=== PATIENT | male | born 1965 | race Hispanic/Latino ===

== ENCOUNTER 2023-03-12 23:53 | Inpatient (IN) | payer OTHER ==
[~2023-03-12] VITALS: Ht 170.2 cm; Wt 96.2 kg
[2023-03-13 00:56] LABS: BASOPHILS % (AUTO) 0.6 % (0.0-5.0); EOSINOPHILS % (AUTO) 3.3 % (0.0-8.0); HEMATOCRIT 42.4 % (42-54); MEAN CORPUSCULAR HEMOGLOBIN 30.1 pg (27.0-33.0); MEAN CORPUSCULAR VOLUME 88.5 fL (79-99); MONOCYTES % (AUTO) 8.2 % (3.0-13.0); NEUTROPHILS % (AUTO) 62.8 % (40.0-77.0); PLATELET COUNT (AUTO) 234 K/uL (130-400); RED BLOOD CELL COUNT(AUTO) 4.79 MIL/uL (4.50-6.20); RED CELL DISTRIBUTION WIDTH 13.1 % (11.0-15.5)
[2023-03-13 01:01] LABS: APPEARANCE,URINE CLEAR (CLEAR); BILIRUBIN,URINE NEGATIVE (NEGATIVE); COLOR,URINE YELLOW (YELLOW); GLUCOSE, URINE (UA) NEGATIVE (NEGATIVE); KETONES,URINE 10 mg/dL (NEGATIVE); LEUKOCYTE ESTERASE ,URINE NEGATIVE Leu/uL (NEGATIVE); NITRATE,URINE NEGATIVE (NEGATIVE); OCCULT BLOOD,URINE NEGATIVE (NEGATIVE); PROTEIN,URINE 10 mg/dL (NEGATIVE); UROBILINOGEN,URINE 0.2 mg/dL (0.2-1.0)
[2023-03-13 01:05] LABS: MUCUS,URINE RARE LPF (None Seen); WBC,URINE 0-1 /HPF (0-1)
[2023-03-13 01:08] LABS: POTASSIUM 3.9 mmol/L (3.5-5.1)
[2023-03-13 01:14] LABS: ALBUMIN 3.9 g/dL (3.5-5.0); TOTAL PROTEIN, SERUM 7.4 g/dL (6.0-8.3)
[2023-03-13] MEDS ORDERED: MORPHINE 4 MG SYG IVP ONE (01:30)
[2023-03-13] MEDS ORDERED: ONDANSETRON 4MG INJ IVP ONE (01:30)
[2023-03-13] MEDS ORDERED: IOHEXOL-350 75 ML VIAL IV ONE (02:42)
[2023-03-13] MEDS ORDERED: HYDROMORPHONE 0.5 MG SYG (0.5MG/0.5ML) IVP ONE (04:00)
[2023-03-13] MEDS ORDERED: VANCOMYCIN 1G/250ML KIT 250 ML IV ONE (06:52)
[2023-03-13] MEDS ORDERED: VANCOMYCIN 1G VIAL IVPB ONE (07:00)
[2023-03-13] MEDS ORDERED: HYDROMORPHONE 0.5 MG SYG (0.5MG/0.5ML) IVP PRN (07:00)
[2023-03-13] MEDS: ZOSYN 3.375GM +NS 50ML IVPB SCH ×3 (07:00→22:36)
[2023-03-13] MEDS ORDERED: ZOSYN 3.375GM +NS 50ML IVPB ONE (07:00)
[2023-03-13] MEDS ORDERED: FURO20TA4 PO (08:14)
[2023-03-13] MEDS ORDERED: RANO500T6 PO (08:16)
[2023-03-13] MEDS ORDERED: CLOP75TA32 PO (08:17)
[2023-03-13] MEDS ORDERED: ASPI-1197 PO (08:18)
[2023-03-13] MEDS ORDERED: ATOR40TA69 PO (08:21)
[2023-03-13] MEDS ORDERED: METO-408 PO (08:21)
[2023-03-13] MEDS ORDERED: 0.9%NACL 50ML IV SCH (09:00)
[2023-03-13] MEDS ORDERED: HEPARIN 5,000 UNIT VIAL SQ SCH (10:00)
[2023-03-13 10:10] VITALS: BP 122/76
[2023-03-13] MEDS: FAMOTIDINE 20MG TAB PO SCH (11:25)
[2023-03-13] MEDS ORDERED: ASPIRIN 325MG TAB PO SCH (11:30)
[2023-03-13] MEDS ORDERED: METOPROLOL SUCCINATE 25 MG TAB.SR.24H PO SCH (11:30)
[2023-03-13] MEDS ORDERED: RANOLAZINE 500 MG TAB.SR.12H PO SCH (11:30)
[2023-03-13] MEDS ORDERED: LACTULOSE 20 GM/30 ML UDCUP PO ONE ×2 (13:00→15:00)
[2023-03-13 16:00] VITALS: BP 131/83
[2023-03-13] MEDS ORDERED: PEG 3350/NA SULF,BICARB,CL/KCL 4000 ML SOLN PO ONE (16:00)
[2023-03-13 20:13] VITALS: BP 134/81
[2023-03-13] MEDS: RANOLAZINE 500 MG TAB.SR.12H PO SCH (20:17)
[2023-03-13] MEDS: ATORVASTATIN 40 MG TABLET PO SCH (20:17)
[2023-03-14] VITALS (30 sets, daily range): BP systolic 99–148; BP diastolic 61–87
[2023-03-14 04:54] LABS: BASOPHILS % (AUTO) 0.5 % (0.0-5.0); EOSINOPHILS % (AUTO) 5.1 % (0.0-8.0); HEMATOCRIT 41.2 % (42-54); LYMPHOCYTES % (AUTO) 26.2 % (21.0-51.0); MEAN CORPUSCULAR HEMOGLOBIN 29.6 pg (27.0-33.0); MEAN CORPUSCULAR HGB CONC 32.8 g/dL (32.0-36.0); MEAN CORPUSCULAR VOLUME 90.4 fL (79-99); PLATELET COUNT (AUTO) 223 K/uL (130-400); RED BLOOD CELL COUNT(AUTO) 4.56 MIL/uL (4.50-6.20); RED CELL DISTRIBUTION WIDTH 13.2 % (11.0-15.5); WHITE BLOOD COUNT (AUTO) 6.1 K/uL (4.8-10.8)
[2023-03-14 05:32] LABS: ALBUMIN 3.3 g/dL (3.5-5.0); CREATININE 1.1 mg/dL (0.5-1.5); TOTAL PROTEIN, SERUM 6.5 g/dL (6.0-8.3)
[2023-03-14] MEDS: ZOSYN 3.375GM +NS 50ML IVPB SCH ×3 (07:17→22:36)
[2023-03-14] MEDS: FUROSEMIDE 20 MG TABLET PO SCH (09:00)
[2023-03-14] MEDS ORDERED: ASPIRIN 81MG CHEW TAB PO SCH (09:00)
[2023-03-14] MEDS: RANOLAZINE 500 MG TAB.SR.12H PO SCH ×2 (09:00→19:48)
[2023-03-14] MEDS: FAMOTIDINE 20MG TAB PO SCH (09:00)
[2023-03-14] MEDS ORDERED: PROPOFOL 10 MG/ML 20ML VIAL IV ONE ×2 (13:37)
[2023-03-14] MEDS: METOPROLOL SUCCINATE 25 MG TAB.SR.24H PO SCH (15:20)
[2023-03-14] MEDS: ATORVASTATIN 40 MG TABLET PO SCH (19:48)
[2023-03-15] VITALS: BP 102/61
[2023-03-15 04:00] VITALS: BP 114/67
[2023-03-15] MEDS: ZOSYN 3.375GM +NS 50ML IVPB SCH (06:40)
[2023-03-15 07:52] VITALS: BP 115/69
[2023-03-15] MEDS: FUROSEMIDE 20 MG TABLET PO SCH (08:54)
[2023-03-15] MEDS: FAMOTIDINE 20MG TAB PO SCH (08:54)
[2023-03-15] MEDS: RANOLAZINE 500 MG TAB.SR.12H PO SCH (08:55)
[2023-03-15] MEDS: METOPROLOL SUCCINATE 25 MG TAB.SR.24H PO SCH (08:55)
[2023-03-15 11:35] VITALS: BP 123/78
== END 2023-03-15 13:16 | disposition home or self-care (01) | DRG 394 ==
LOC: EDH 23:53 → EDHIP 03-13 06:52 → 4AH 03-13 10:09
PROVIDERS: ADMIT Hospitalist; ATTEND Hospitalist
PROC: 0DBP8ZZ Excision of Rectum, Via Natural or Artificial Opening Endoscopic (ICD-10-PCS; principal; 2023-03-14)
DX: K62.1 Rectal polyp (principal); K63.3 Ulcer of intestine; K59.00 Constipation, unspecified; I25.10 Atherosclerotic heart disease of native coronary artery without angina pectoris; E78.00 Pure hypercholesterolemia, unspecified; Z20.822 Contact with and (suspected) exposure to COVID-19; I10 Essential (primary) hypertension; W18.39XA Other fall on same level, initial encounter; K64.8 Other hemorrhoids; Z79.82 Long term (current) use of aspirin; Z79.02 Long term (current) use of antithrombotics/antiplatelets; Z95.1 Presence of aortocoronary bypass graft; I25.2 Old myocardial infarction; Y93.89 Activity, other specified; Y92.89 Other specified places as the place of occurrence of the external cause; Y99.8 Other external cause status; Z79.899 Other long term (current) drug therapy; Z82.3 Family history of stroke; Z82.49 Family history of ischemic heart disease and other diseases of the circulatory system; Z83.3 Family history of diabetes mellitus
CPT/HCPCS: 36415; 45380; 74177; 80053; 81001; 83605; 83735; 84153; 85025; 87635; A4606; G0378; J1170; J1644; J2270; J2405; J2543; J2704; J3370; J7030; Q9967

== ENCOUNTER → 2023-04-27 | Outpatient (CLI) | payer SELFPAY ==
[~2023-04-27] VITALS: Ht 170.2 cm; Wt 94.3 kg
[~2023-04-27] MED LIST: ASPI-1197 PO; ATOR40TA69 PO; CLOP75TA32 PO; FURO20TA4 PO; METO-408 PO; RANO500T6 PO
[2023-04-27 10:47] VITALS: BP 144/84
== END | disposition home or self-care (01) ==
LOC: SHCH 08:34 → EDUNIT# 09:00
PROVIDERS: ATTEND Student in an Organized Health Care Education/Training Program
DX: I25.10 Atherosclerotic heart disease of native coronary artery without angina pectoris (principal)
CPT/HCPCS: 93306

== ENCOUNTER 2023-05-01 09:49 | Day surgery (SDC) | payer OTHER, SELFPAY ==
[2023-04-27 10:13] LABS: BASOPHILS % (AUTO) 0.8 % (0.0-5.0); EOSINOPHILS % (AUTO) 3.8 % (0.0-8.0); HEMATOCRIT 48.7 % (42-54); LYMPHOCYTES % (AUTO) 35.6 % (21.0-51.0); MEAN CORPUSCULAR HEMOGLOBIN 29.8 pg (27.0-33.0); MEAN CORPUSCULAR HGB CONC 33.1 g/dL (32.0-36.0); MEAN CORPUSCULAR VOLUME 90.2 fL (79-99); MONOCYTES % (AUTO) 7.6 % (3.0-13.0); PLATELET COUNT (AUTO) 255 K/uL (130-400); RED CELL DISTRIBUTION WIDTH 14.4 % (11.0-15.5); WHITE BLOOD COUNT (AUTO) 5.3 K/uL (4.8-10.8)
[2023-04-27 10:24] LABS: CREATININE 0.9 mg/dL (0.5-1.5); POTASSIUM 3.9 mmol/L (3.5-5.1)
[2023-04-27 10:47] VITALS: BP 144/84
[2023-05-01] VITALS (18 sets, daily range): BP systolic 104–130; BP diastolic 60–75
[~2023-05-01] VITALS: Ht 170.2 cm; Wt 94.3 kg
[~2023-05-01 09:49] MED LIST changes: -METO-408 PO
[2023-05-01] MEDS ORDERED: LACTATED RINGERS 1000ML 1,000 ML IV ONE (10:09)
[2023-05-01] MEDS ORDERED: CEFAZOLIN SODIUM 2 GM VIAL ONE (10:10)
[2023-05-01] MEDS ORDERED: PROPOFOL 10 MG/ML 20ML VIAL IV ONE (12:36)
[2023-05-01] MEDS ORDERED: LIDOCAINE PF 100MG/5ML (2%) SYRINGE 5ML ONE (12:36)
[2023-05-01] MEDS ORDERED: FENTANYL CITRATE PF 50 MCG/1 ML 2ML VIAL ONE (12:36)
[2023-05-01] MEDS ORDERED: SUCCINYLCHOLINE CHLORIDE 20 MG/ML 10 ML VIAL ONE (12:36)
[2023-05-01] MEDS ORDERED: MIDAZOLAM HCL 1 MG/ML 2ML VIAL ONE (12:36)
[2023-05-01] MEDS ORDERED: KETAMINE 50MG/ML SYRINGE 50 MG/ML DISP.SYRIN ONE (12:37)
[2023-05-01] MEDS ORDERED: BUPIVACAINE/PF 0.25% 30ML VIAL IJ ONE (12:46)
[2023-05-01] MEDS ORDERED: BUPIVACAINE/EPI/PF 0.25% 30ML VIAL IJ ONE (13:01)
[2023-05-01] MEDS ORDERED: BACITRACIN 28.4 GM OINT TP ONE ×2 (13:01→13:07)
[2023-05-01] MEDS ORDERED: GLYCOPYRROLATE 1 MG/5 ML SYRINGE ONE (13:02)
[2023-05-01] MEDS ORDERED: KETOROLAC 30MG VIAL (30MG/ML) ONE (13:08)
[2023-05-01] MEDS ORDERED: ONDANSETRON 4MG INJ ONE (13:10)
== END 2023-05-01 15:10 | disposition home or self-care (01) ==
LOC: DAH 09:49
PROVIDERS: ATTEND Surgery
DX: K60.1 Chronic anal fissure (principal); Z20.822 Contact with and (suspected) exposure to COVID-19; I10 Essential (primary) hypertension; E78.5 Hyperlipidemia, unspecified; I25.2 Old myocardial infarction; I25.10 Atherosclerotic heart disease of native coronary artery without angina pectoris; Z82.49 Family history of ischemic heart disease and other diseases of the circulatory system; Z82.3 Family history of stroke; Z83.3 Family history of diabetes mellitus; Z79.899 Other long term (current) drug therapy
CPT/HCPCS: 80048; 85025; 87426; 36415; 46200; A6260; A4663; A4649; A4606; J7120; J3010; J3490 ×4; J0330; J2001; J2250; J2704; J2405; J1885; J0690; A4215; A4223; A4222; A4221